=== PATIENT | male | born 1975 | race American Indian/Alaskan Native ===

== ENCOUNTER 2016-07-21 07:58 | Day surgery (SDC) | payer BC ==
[~2016-07-21 07:58] MED LIST: ANCEF/STERILE WATER 2 GM/20 ML 20 ML IV SCH
[2016-07-21] MEDS ORDERED: SUBLIMAZE ONE (08:31)
[2016-07-21] MEDS ORDERED: DIPRIVAN 10 MG/ML IV ONE (08:31)
[2016-07-21] MEDS ORDERED: ZEMURON IV ONE ×2 (08:40→10:45)
[2016-07-21] MEDS ORDERED: XYLOCAINE MPF 2% ONE (08:40)
--- NOTE | 2016-07-21 08:50 | Anesthesia Consultation ---
Anesthesia Consult and Med Hx Date of service: 07/21/16 - Airway Anesthetic Teeth Evaluation: Good ROM Head & Neck: Adequate Mental/Hyoid Distance: Adequate Mallampati Class: Class II Intubation Access Assessment: Probably Good - Pulmonary Exam CTA: Yes - Cardiac Exam Cardiac Exam: RRR - Pre-Operative Health Status ASA Pre-Surgery Classification: ASA2 Proposed Anesthetic Plan: General - Pulmonary Hx Smoking: Yes (15YRS) - Cardiovascular System Hx Hypertension: No - Endocrine Hx Non-Insulin Dependent Diabetes: No - Other Systems Hx Alcohol Use: Yes (BEER, WINE ,MIXED DRINKS)
--- NOTE | 2016-07-21 08:51 | Anesthesia Day of Surgery ---
Anesthesia Day of Surgery - Day of Surgery Patient Examined: Yes Patient H&P Reviewed: Yes Patient is NPO: Yes
[2016-07-21] MEDS ORDERED: NACL 0.9% 1000 ML 1,000 ML IV SCH (09:00)
[2016-07-21] MEDS ORDERED: VERSED IV NR (09:00)
[2016-07-21] MEDS ORDERED: PEPCID PO NR (09:00)
[2016-07-21] MEDS ORDERED: NACL BACTERIOSTATIC INFILTRATI ONE (09:03)
[2016-07-21] MEDS ORDERED: PERCOCET 5/325 PO PRN (09:05)
[2016-07-21] MEDS ORDERED: ROBINUL ONE (10:08)
[2016-07-21] MEDS ORDERED: ZOFRAN ONE (10:08)
[2016-07-21] MEDS ORDERED: BLOXIVERZ ONE (10:08)
[2016-07-21] MEDS ORDERED: MARCAINE-EPI 0.5%-1:200,000 INFILTRATI ONE (10:16)
[2016-07-21] MEDS ORDERED: WATER FOR IRRIG STERILE IR ONE (10:16)
[2016-07-21] MEDS ORDERED: NACL 0.9% IR ONE (10:16)
[2016-07-21] MEDS ORDERED: NACL 0.9% 1000 ML 1,000 ML ONE (10:53)
[2016-07-21] MEDS ORDERED: DILAUDID ONE (11:02)
[2016-07-21] MEDS ORDERED: TORADOL ONE (11:03)
--- NOTE | 2016-07-21 11:15 | Discharge Summary ---
Short Stay Discharge Plan Activity: other (observe x 4hrs then may d/c if stable and able to void. ice pack x 6hrs both groins. scrotal support x 3 days. aleve 1 tab po q 6-8 hrs prn for breakthrough pain. surfak I po q am x 3) Weight Bearing Status: Partial Weight Bearing (no lifting over 5 lbs x 2 wks.) Diet: clear liquids (cl liq diet today. advance to solid diet at home in am) Wound: keep clean and dry (x 5 days) Follow up with: ANGELES GALEANO MD [Staff Physician] - 7 Days
--- NOTE | 2016-07-21 11:43 | Operative Report ---
PREOPERATIVE DIAGNOSIS: Bilateral inguinal hernias, left greater than right. POSTOPERATIVE DIAGNOSES: Bilateral inguinal hernias, left greater than right, also left varicocele. PROCEDURE: Laparoscopic bilateral inguinal hernia repair with mesh. SURGEON: Herminio Frost MD MANAGER FLEET: Catalina Gunderson MD. ANESTHESIA: General. ESTIMATED BLOOD LOSS: Minimal. DRAINS: None. COMPLICATIONS: None. DESCRIPTION OF PROCEDURE: The patient was taken to the operating room, prepped and draped in usual sterile fashion. Infraumbilical incision was made and the preperitoneal space entered. The preperitoneal space was dissected with dissecting balloon. Danilo was then inserted and CO2 insufflation begun. Attention was first focused to the left groin site, which was the larger and more symptomatic side. Dissection was carried out along Earl's ligament and iliopubic tract. Large indirect hernia sac was identified. The sac was slowly dissected free from the cord structures and returned to the peritoneal cavity. A varicocele was also noted at the time. A Bard 3D mesh was used to reconstruct the inguinal canal floor. The mesh was secured medially to Earl's ligament and laterally above the iliopubic tract. Superiorly, the mesh was secured to the rectus muscle. The sac was then grasped and on laid over the mesh. Attention was then focused to the right groin. Once again, an indirect hernia sac was identified, which was repaired in similar fashion. The air was then carefully inspected and noted to be well reconstructed. No bleeding or oozing noted. The trocars were removed and CO2 expelled. The fascia at the umbilicus was closed with a [id number] 0 Vicryl suture. The skin at all port sites was closed with subcuticular 4-0 Vicryl. A 0.5% Marcaine with epinephrine was infiltrated over the port site. Bilateral ilioinguinal nerve block were also performed for postop pain relief. The scrotum was also then checked and both testicles noted to be within the scrotal sac. The patient tolerated the procedure well and left the OR in stable condition. JOB# [id number] ELIAS/PARTH
[2016-07-21] MEDS: DILAUDID IV PRN ×2 (11:55→12:05)
[2016-07-21 15:52] VITALS: BP 125/61
[2016-07-23] MEDS ORDERED: ceFAZolin 2 GM in NACL 0.9% 100 ML IV NR (08:00)
== END 2016-07-21 15:30 | disposition home or self-care (01) ==
LOC: OR 07:58
PROVIDERS: ATTEND Surgery
DX: K40.20 Bilateral inguinal hernia, without obstruction or gangrene, not specified as recurrent (principal); F17.200 Nicotine dependence, unspecified, uncomplicated; F10.99 Alcohol use, unspecified with unspecified alcohol-induced disorder; Z83.3 Family history of diabetes mellitus
CPT/HCPCS: 49650; C1726; C1781; J0690; J1170; J1885; J2250; J2405; J2704; J2710; J3010; J7030